=== PATIENT | male | born 1955 | race Caucasian/White ===

== ENCOUNTER 2017-04-05 12:43 | Emergency (ER) | payer OTHER ==
[~2017-04-05 12:43] MED LIST: IBUP600T26 PO
[2017-04-05 12:46] VITALS: BP 163/84; PULSE 65; RESP 18; TEMP 98.2; O2SAT 95
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
[2017-04-05] MEDS ORDERED: KETOROLAC TROMETHAMINE 60 MG/2 ML (IM) VIAL IM ONE (14:30)
[2017-04-05] MEDS ORDERED: IBUP1TAB7 PO (15:05)
[2017-04-05] MEDS ORDERED: CYCL10TA PO (15:05)
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
== END 2017-04-05 16:31 | disposition home or self-care (01) ==
LOC: NEPK 12:43
DX: R52 Pain, unspecified (principal); M50.30 Other cervical disc degeneration, unspecified cervical region; M51.36 Other intervertebral disc degeneration, lumbar region; R51 Headache; E78.00 Pure hypercholesterolemia, unspecified; I10 Essential (primary) hypertension
CPT/HCPCS: 72125; 72131; 73630; 96372; 99285; J1885